=== PATIENT | male | born 2000 | race Hispanic/Latino ===

== ENCOUNTER 2021-03-21 06:38 | Emergency (ER) | payer BC ==
[2021-03-21] MEDS ORDERED: Lidocaine 1% w/Epinephrine 1:100K 20 ML VIAL ONE (09:05)
== END 2021-03-21 12:20 | disposition home or self-care (01) ==
LOC: CSHERS 06:38
DX: N49.8 Inflammatory disorders of other specified male genital organs (principal)
CPT/HCPCS: 56405

== ENCOUNTER 2021-03-23 08:15 | Outpatient (CLI) | payer BC | END 2021-03-23 08:16 | disposition home or self-care (01) | LOC: CSHWCC 08:15 | PROVIDERS: ATTEND Nurse Practitioner Family | DX: S71.101D Unspecified open wound, right thigh, subsequent encounter (principal); G89.11 Acute pain due to trauma; L03.818 Cellulitis of other sites | CPT/HCPCS: 17250; 99213; G0463 ==